=== PATIENT | female | born 1980 | race Caucasian/White ===

== ENCOUNTER 2017-01-03 12:04 | Emergency (ER) | payer MEDICARE, MEDICAID ==
[~2017-01-03] VITALS: Ht 157.5 cm; Wt 84.4 kg
--- OUTSIDE RECORDS SUMMARY | 2017-01-03 12:15 | XMS REPORT | Continuity of Care Document ---
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 Name Role Phone Sonja Chance SEFERINO Unavailable Payers Payer name Insurance type Covered green party ID Authorization(s) Unknown Problems Condition Effective Dates (start - stop) Clinical Status Seizure - *Acute Urinary Tract Infection - *Acute Seizure - *Acute Cough - *Acute Pneumonia - *Acute Throat pain - *Acute Seizure - *Chronic Common cold virus - *Acute Right foot pain - *Acute Tobacco use - *Chronic Contact dermatitis - *Acute Family History Family Member Diagnosis Age At Onset Status Unknown Social History Social History Element Description Quantity Unknown Allergies, Adverse Reactions, Alerts Substance Reaction Severity Status Unknown Medications Medication Instructions Dosage Effective Dates (start - stop) Status ciprofloxacin 500 mg tablet take 1 tablet (500MG) by oral route 2 times every day 500 MG - No Longer Active multivitamin tablet take 1 Tablet by Oral route every day 0 - Active Immunizations Vaccine Date Status Comments Unknown Results Test Name Date and Time Measure Units Reference Range Abnormal Flag Comments Unknown Vital Signs Date / Time: Height Weight Pulse Rate Blood Pressure Temperature /14:27:00 216.00 lbs 72 /min 132/68 mm[Hg] 96.3 F Procedures Procedure Date Unknown Encounters Encounter Location Date Patient Visit [facility] Patient [facility] Patient [facility] Patient [facility] Patient Visit [facility] Patient Visit [facility] Patient Visit [facility] Patient Visit [facility] Advance Directives Directive Effective Date Unknown
[2017-01-03] MEDS ORDERED: CYAN500T44 PO (12:33)
[2017-01-03] MEDS ORDERED: ONDANSETRON 4 MG (ZOFRAN) ORAL DISSOLVE TAB PO ONE (12:55)
[2017-01-03] MEDS ORDERED: ONDAN4ODT PO (12:56)
[2017-01-03 13:09] VITALS: BP 118/83
== END 2017-01-03 13:10 | disposition home or self-care (01) ==
LOC: ED 12:11
DX: R11.2 Nausea with vomiting, unspecified (principal)
CPT/HCPCS: 99282; A9270; 99283